=== PATIENT | male | born 1985 | race Caucasian/White ===

== ENCOUNTER 2016-07-28 17:26 | Emergency (ER) | payer OTHER ==
[~2016-07-28] VITALS: Ht 182.9 cm; Wt 97.7 kg
[2016-07-28 17:42] VITALS: BP 127/77; PULSE 84; RESP 14; O2SAT 98
--- NOTE | 2016-07-28 18:34 | ED.REPORT ---
[id number] Illness Date of Service Jul 28, 2016 ED Provider: Speedy Chan MD Pt is a 30 year old male presenting to the ED complaining of ear, eye and throat pain onset 1 month ago, worsened over the last 24 hours. Associated symptoms include cough with brown sputum, hearing loss in the left ear, yellowish eye drainage (causing his eyelashes to stick together), and a severely sore throat. Nursing Notes Stated Complaint: EARS,EYE,THROAT PAIN Chief Complaint: FLU/Cold Symptoms Nursing Notes Reviewed: Yes ([employer], meds not reconciled) Allergies: Coded Allergies: No Known Allergies (Unverified , 07/28/16) Scheduled Amoxicillin (Amoxicillin) 500 Mg Capsule 500 MG PO TID Scheduled PRN Hydrocodone-Acetaminophen 5-325 mg (Hydrocodone-Acetaminophen 5-325 mg) 1 Each Tablet 1-2 TABLET PO Q6H PRN PRN For Pain Hydrocodone-Acetaminophen 5-325 mg (Hydrocodone-Acetaminophen 5-325 mg) 1 Each Tablet 1-2 TABLET PO Q4-6H PRN PRN For Pain General Time Seen by Provider: 18:35 Chief Complaint Sore throat Hx Obtained From: Patient Arrived By: Walk-in Onset Occurred: More than a week ago... (1 month) Symptom Duration: Since onset Progression Since Onset: Constant Quality: Painful Severity: Current: Moderate Severity: Maximum: Severe Context: Immunization Status Immunizations Up to Date: Seasonal influenza Recent Healthcare: No recent doctor visit, No recent hospitalization Similar Sx Previous: No Past Medical History Past Medical History denies Past Surgical History denies Smoking History Never Smoker Social History Alcohol Use: Denies alcohol use Drug Use: Denies drug use Ambulatory Status Independent Review of Systems Eyes: Reports: Discharge bilateral Ears / Nose / Throat: Reports: Earache left, Hearing loss left, Sore throat Respiratory: Reports: Prod cough, brown Complete sys rev & neg: except as marked. Physical Exam Initial Vital Signs Vital Signs (First) Date Time Temp Pulse Resp B/P Pulse Ox O2 Delivery O2 Flow Rate FiO2 07/28/16 17:42 37.2 84 14 127/77 98 Initial VS: Reviewed, Vital signs normal Interpretation & Diagnostics Lab Results Interpretation Lab Results Interpretation: Influenza negative Re-Evaluation & [facility] Med Decision/Clinical Course This is a 30-year-old male had some mild symptoms for number weeks, developed rapid deterioration past 24 hours now has left ear pain, weak appearing discharge, sore throat, cough and body aches. Influenza is negative, he is not febrile, he is not toxic. He does have a significant superlative otitis media on the left on clinical exam , and is a moderate mucopurulent conjunctivitis on the left as well. His oropharynx is erythematous, but there is no tonsillar exudate, no signs of abscess, no cervical adenopathy, no airway compromise. His lungs are clear. Given his otitis media the patient's being started on amoxicillin. I have also provided some when necessary hydrocodone for symptomatic support, and topical gentamycin for the eyes. Routine precautions reviewed. Source of Hx: Old records Differential Diagnosis: Negative: Allergic rhinitis, Appendicitis, Bowel obstruction, Dehydration, Gastroenteritis, Meningitis, Sepsis Counseled Regarding: Diagnosis, Lab results, Need for follow-up, When/why to return to ED Patient Discharge & Departure Impression: Primary Impression: Left otitis media Otitis media type: suppurative Chronicity: acute Recurrence: not specified Spontaneous tympanic membrane rupture: without spontaneous rupture Qualified Code: H66.002 - Acute suppurative otitis media without spontaneous rupture of ear drum, left ear Additional Impressions: Conjunctivitis Conjunctivitis type: acute Acute conjunctivitis type: bacterial Laterality : left Qualified Code: H10.022 - Other mucopurulent conjunctivitis, left eye Flu-like symptoms Disposition: Home Discharge Condition All VS Reviewed: Yes Condition: Improved Additional Instructions: 1. Your influenza test was negative. 2. You do have ear infection. Take the antibiotic amoxicillin 500 mg 3 times a day for 10 days. 3. Additionally, your left eye is infected-put 2 drops of gentamicin eyedrops in the left eye 4 times a day for the next 5 days. 4. Wash your hands frequently, as this may be contagious. 5. Take ibuprofen 400-800 mg 3 times a day for pain/fever as needed. 6. If needed for more severe pain, take hydrocodone/APAP 05/325 1-2 tabs up to every 4-6 hours as needed for pain. Note: This medication contains some Tylenol , as well as a narcotic. It does cause some drowsiness-no driving for at least 4-6 hours after taking. 7. Rest. 8. It is okay not to eat with a sore throat, but it is important to take small frequent sips of fluids to stay hydrated. 9. Symptoms should be improving after a few days. 10. Return if new or worsening symptoms 11. If you need a primary care provider to follow up with, follow up with Dr. Blackburn. Referrals: Bola Blackburn MD Attestation Portions of this note were transcribed by Lisa Causey. I, Dr. Chan personally performed the history, physical exam and medical decision-making; I reviewed and confirmed the accuracy of the information in the transcribed note. Signed by: Rusty Youssef, 07/28/16 and [Time]. copies to: Bola Blackburn MD, Matthew F MD Jul 28, 2016 18:34 LISA CAUSEY Jul 28, 2016 18:41
[2016-07-28] MEDS ORDERED: Gentamicin 0.3% 5 mL Ophthalmic Solution LEFT_EYE ONE (18:45)
[2016-07-28] MEDS ORDERED: _HYDROcodone/APAP 5-325 mg Tablet PO PRN (18:45)
[2016-07-28] MEDS ORDERED: HYDR-4003 PO ×2 (18:48→18:52)
[2016-07-28] MEDS ORDERED: AMOX500C2 PO (18:52)
[2016-07-28 19:11] VITALS: BP 123/67; PULSE 78; RESP 16; O2SAT 98
[2016-07-28] MEDS ORDERED: _Amoxicillin 500 mg Capsule PO SCH (20:30)
== END 2016-07-28 19:12 | disposition home or self-care (01) ==
LOC: SED 17:26
DX: H66.002 Acute suppurative otitis media without spontaneous rupture of ear drum, left ear (principal); H10.022 Other mucopurulent conjunctivitis, left eye; J11.1 Influenza due to unidentified influenza virus with other respiratory manifestations